=== PATIENT | male | born 1995 | race Hispanic/Latino ===

== ENCOUNTER 2021-10-11 07:38 | Outpatient (CLI) | payer OTHER | END 2021-10-11 07:39 | disposition home or self-care (01) | LOC: BICULT 07:38 | PROVIDERS: ATTEND Family Medicine | DX: N50.89 Other specified disorders of the male genital organs (principal); I86.1 Scrotal varices | CPT/HCPCS: 76870; 93976 ==

== ENCOUNTER 2021-12-06 14:35 | Outpatient (CLI) | payer OTHER ==
[~2021-12-06 14:35] MED LIST: Iopamidol 370 76% 100 ML VIAL ONE
== END 2021-12-06 14:36 | disposition home or self-care (01) ==
LOC: BICCT 14:35
PROVIDERS: ATTEND Urology
DX: I86.1 Scrotal varices (principal); Z87.891 Personal history of nicotine dependence; Z86.19 Personal history of other infectious and parasitic diseases
CPT/HCPCS: 74178; Q9967